=== PATIENT | female | born 1980 | race Caucasian/White ===

== ENCOUNTER 2019-04-25 20:03 | Emergency (ER) | payer SELFPAY ==
[~2019-04-25] VITALS: Ht 154.9 cm; Wt 63.0 kg
[2019-04-25 20:04] VITALS: BP 139/87
[2019-04-25] MEDS ORDERED: MORPHINE SULFATE INJ 4 MG/ML DISP.SYRIN ONE (22:35)
[2019-04-25] MEDS ORDERED: ONDANSETRON 4 MG TAB.RAPDIS ONE (22:35)
--- NOTE | 2019-04-25 22:41 | NUR ---
Patient discharged to home in stable condition. Written and verbal after care instructions given. Patient verbalizes understanding of instruction. Pt ambulatory with a steady gait
[2019-04-25] MEDS ORDERED: ONDANSETRON 4 MG TAB.RAPDIS SL ONE (23:00)
[2019-04-25] MEDS ORDERED: MORPHINE SULFATE INJ 2 MG/ML DISP.SYRIN IV ONE (23:00)
== END 2019-04-25 22:46 | disposition home or self-care (01) ==
LOC: ER 20:03
DX: E03.9 Hypothyroidism, unspecified (principal); Z76.0 Encounter for issue of repeat prescription; Z90.710 Acquired absence of both cervix and uterus; Z98.890 Other specified postprocedural states; Z88.6 Allergy status to analgesic agent
CPT/HCPCS: 99283; Q0162; J2270